=== PATIENT | female | born 1945 | race Caucasian/White ===

== ENCOUNTER → 2020-06-21 | Day surgery (SDC) | payer MEDICARE, BC ==
[2020-06-16 14:34] LABS: BASOPHILS # (AUTO) 0.1 (0.0-0.1); BASOPHILS % 1.3 % (0.0-1.0); EOSINOPHILS # (AUTO) 0.9 (0.0-0.4); EOSINOPHILS % 9.2 % (0.0-6.0); HEMATOCRIT 33.9 % (34.2-44.1); HEMOGLOBIN 10.8 g/dL (12.0-16.0); LYMPHOCYTES # (AUTO) 2.4 (1.0-3.2); LYMPHOCYTES % 25.6 % (18.0-39.1); MEAN CORPUSCULAR HEMOGLOBIN 31.4 pg (28-32); MEAN CORPUSCULAR HGB CONC 31.9 g/dL (31-35); MEAN CORPUSCULAR VOLUME 98.5 fL (81-99); MONOCYTES # (AUTO) 0.6 (0.2-0.8); NEUTROPHILS # (AUTO) 5.4 (2.1-6.9); NEUTROPHILS % 57.6 % (38.7-80.0); PLATELET COUNT 253 x10e3/uL (140-360); RED BLOOD COUNT 3.44 x10e6/uL (3.6-5.1); RED CELL DISTRIBUTION WIDTH 14.1 % (11.7-14.4)
--- NOTE | 2020-06-16 15:19 | Diagnostic Imaging Report ---
EXAMINATION: PA and lateral views of the chest. COMPARISON: None CLINICAL HISTORY: Preoperative examination for orthopedic procedure DISCUSSION: The lungs are well inflated. No focal airspace consolidation, pleural effusion, or pneumothorax. Tortuous thoracic aorta with otherwise normal cardiomediastinal contour. No acute osseous abnormalities. Probable posttraumatic deformities of several right-sided ribs. IMPRESSION: No acute cardiopulmonary abnormalities. Signed by: Dr. Lazaro Zapata M.D. on 06/16/2020 3:15 PM
[~2020-06-21] MED LIST: ASPIRIN81 MG PO; BENICAR20 MG PO; BUPIVACAINE HCL 0.5% INJ 30 ML VIAL INJ ONE; CEFAZOLIN SOD 1 GM/NS 50ML 100 ML IV ONE; CLARITIN-D 241 EACH PO; DEXAMETHASONE SOD PHOS INJ 4 MG/ML VIAL ONE; IBUPROFEN200 MG PO; KETOROLAC TROMETHAMINE 30 MG/ML VIAL ONE; LEVOTHYROXINE100 MC1 PO; LIDOCAINE HCL 2% JELLY 5 ML TUBE ONE; LIDOCAINE HCL 2% LOCAL INJ 5 ML SDV VIAL INJ ONE; LIPITOR10 MG PO; ONDANSETRON HCL INJ 2MG/ML 2ML 2 MG/ML VIAL ONE; OXYBUTYNIN CHLOR5 M1 PO; PROPOFOL IV EMULSION 10 MG/ML 20 ML VIAL ONE; SEVOFLURANE INHAL SOLN 250 ML PEN BTL ONE
[2020-06-21 10:00] VITALS: BP 122/73
--- NOTE | 2020-06-27 19:37 | Operative Report ---
DATE OF PROCEDURE: 06/21/2020 SURGEON: Rory Lara MD PREOPERATIVE DIAGNOSIS: Right carpal tunnel syndrome. POSTOPERATIVE DIAGNOSIS: Right carpal tunnel syndrome. OPERATIONS/PROCEDURES PERFORMED: Right carpal tunnel release, ANESTHESIA: General endotracheal intubation anesthesia. IV FLUIDS: With the anesthesia record. BLOOD LOSS: Minimal. BRIEF DESCRIPTION OF THE PATIENT'S OPERATIVE PROCEDURE: Ms. Turner was taken to the operating room and placed in supine position on the operating table. Following induction of general anesthesia as well as endotracheal intubation, the patient's right upper extremity was examined under anesthesia. She was found to have no gross abnormalities to the wrist or hand. The patient's upper extremity was prepped and draped in standard surgical fashion. The case was begun by creating incision along the thenar palmar crease. This incision was carried through skin only. Blunt dissection was used to deepen the incision to the level of transverse carpal ligament. Hemostat was placed beneath the transverse carpal ligament. The transverse carpal ligament was then divided in line with the skin incision. The floor of the carpal canal was evaluated and found to have no gross abnormalities. The tourniquet was deflated and hemostasis was obtained. The wound was then closed in a single layered fashion. Sterile dressings were applied. The patient was then awakened and taken to the postanesthesia care unit in stable condition. MD LEÓN Humphrey/MODL /[id number]
== END | disposition home or self-care (01) ==
LOC: OR 05:29
PROVIDERS: ATTEND Specialist
DX: G56.01 Carpal tunnel syndrome, right upper limb (principal); E78.00 Pure hypercholesterolemia, unspecified; E03.9 Hypothyroidism, unspecified; I10 Essential (primary) hypertension; Z01.810 Encounter for preprocedural cardiovascular examination; Z01.812 Encounter for preprocedural laboratory examination; Z01.818 Encounter for other preprocedural examination; Z11.59 Encounter for screening for other viral diseases; Z79.82 Long term (current) use of aspirin
CPT/HCPCS: 36415; 64721; 71046; 85025; 93005; J0690; J1100; J1885; J2001 ×2; J2405; J2704; U0002

== ENCOUNTER 2022-03-27 15:48 | Emergency (ER) | payer MEDICARE, BC ==
[~2022-03-27] VITALS: Ht 157.5 cm; Wt 90.7 kg
[~2022-03-27 15:48] MED LIST changes: -BUPIVACAINE HCL 0.5% INJ 30 ML VIAL INJ ONE; -CEFAZOLIN SOD 1 GM/NS 50ML 100 ML IV ONE; -DEXAMETHASONE SOD PHOS INJ 4 MG/ML VIAL ONE; -KETOROLAC TROMETHAMINE 30 MG/ML VIAL ONE; -LIDOCAINE HCL 2% JELLY 5 ML TUBE ONE; -LIDOCAINE HCL 2% LOCAL INJ 5 ML SDV VIAL INJ ONE; -ONDANSETRON HCL INJ 2MG/ML 2ML 2 MG/ML VIAL ONE; -PROPOFOL IV EMULSION 10 MG/ML 20 ML VIAL ONE; -SEVOFLURANE INHAL SOLN 250 ML PEN BTL ONE
[2022-03-27] MEDS ORDERED: FUROSEMIDE INJ 10 MG/ML 2 ML VIAL IV ONE (16:15)
[2022-03-27 16:23] LABS: BASOPHILS # (AUTO) 0.1 (0.0-0.1); BASOPHILS % 0.7 % (0.0-1.0); EOSINOPHILS # (AUTO) 0.7 (0.0-0.4); EOSINOPHILS % 8.2 % (0.0-6.0); HEMATOCRIT 29.3 % (34.2-44.1); HEMOGLOBIN 9.5 g/dL (12.0-16.0); LYMPHOCYTES # (AUTO) 1.5 (1.0-3.2); LYMPHOCYTES % 17.8 % (18.0-39.1); MEAN CORPUSCULAR HEMOGLOBIN 35.1 pg (28-32); MEAN CORPUSCULAR HGB CONC 32.4 g/dL (31-35); MEAN CORPUSCULAR VOLUME 108.1 fL (81-99); MONOCYTES # (AUTO) 0.6 (0.2-0.8); NEUTROPHILS # (AUTO) 5.6 (2.1-6.9); NEUTROPHILS % 65.8 % (38.7-80.0); PLATELET COUNT 242 x10e3/uL (140-360); RED BLOOD COUNT 2.71 x10e6/uL (3.6-5.1); RED CELL DISTRIBUTION WIDTH 14.5 % (11.7-14.4)
[2022-03-27 16:43] LABS: ALBUMIN 3.7 g/dL (3.5-5.0); ALBUMIN/GLOBULIN RATIO 0.8 (0.8-2.0); CALCIUM 9.1 mg/dL (8.4-10.2); CREATININE, SERUM 1.33 mg/dL (0.57-1.11)
[2022-03-27] MEDS ORDERED: METHYLPREDNISOLONE SOD SUCC 125 MG/2ML VIAL IV SCH (17:00)
[2022-03-27] MEDS ORDERED: PREDNISONE50 MG PO (18:05)
[2022-03-27] MEDS ORDERED: DOXYCYCLINE HY100 MG PO (18:05)
[2022-03-27] MEDS ORDERED: PROAIR HFA INH8.5 GM PO (18:05)
[2022-03-27] MEDS ORDERED: HYDROCHLOROTHIA25 MG PO (18:07)
[2022-03-27 18:19] VITALS: BP 131/78
[2022-03-27] MEDS ORDERED: ALBUTEROL/IPRATROPIUM 3 ML NEB NEB SCH (19:00)
== END 2022-03-27 18:21 | disposition home or self-care (01) ==
LOC: ER 17:42
DX: J18.9 Pneumonia, unspecified organism (principal); J45.909 Unspecified asthma, uncomplicated; R60.9 Edema, unspecified; I10 Essential (primary) hypertension; Z20.822 Contact with and (suspected) exposure to COVID-19
CPT/HCPCS: 36415; 71045; 80053; 83880; 84484; 85025; 93005; 94640; 94799; 99284; J1940; J2930; U0002

== ENCOUNTER 2022-05-15 16:19 | Inpatient (IN) | payer MEDICARE, BC ==
[~2022-05-15] VITALS: Ht 157.5 cm; Wt 98.9 kg
[~2022-05-15 16:19] MED LIST changes: +DOXYCYCLINE HY100 MG PO; +HYDROCHLOROTHIA25 MG PO; +PREDNISONE50 MG PO; +PROAIR HFA INH8.5 GM PO
[2022-05-15] MEDS ORDERED: KETOROLAC TROMETHAMINE 30 MG/ML VIAL IV STA (17:08)
[2022-05-15] MEDS ORDERED: ONDANSETRON HCL INJ 2MG/ML 2ML 2 MG/ML VIAL IV STA (17:08)
[2022-05-15 17:12] LABS: BASOPHILS % 0.2 % (0.0-1.0); EOSINOPHILS # (AUTO) 0.1 (0.0-0.4); EOSINOPHILS % 1.2 % (0.0-6.0); HEMATOCRIT 27.1 % (34.2-44.1); HEMOGLOBIN 8.7 g/dL (12.0-16.0); LYMPHOCYTES # (AUTO) 1.2 (1.0-3.2); MEAN CORPUSCULAR HEMOGLOBIN 36.3 pg (28-32); MEAN CORPUSCULAR HGB CONC 32.1 g/dL (31-35); MEAN CORPUSCULAR VOLUME 112.9 fL (81-99); MONOCYTES # (AUTO) 0.9 (0.2-0.8); MONOCYTES % 7.6 % (4.4-11.3); NEUTROPHILS # (AUTO) 9.6 (2.1-6.9); NEUTROPHILS % 80.7 % (38.7-80.0); PLATELET COUNT 237 x10e3/uL (140-360); RED CELL DISTRIBUTION WIDTH 15.5 % (11.7-14.4)
[2022-05-15 17:14] LABS: CLARITY,URINE CLOUDY (CLEAR); COLOR,URINE YELLOW (YELLOW); LEUKOCYTE ESTERASE ,URINE 1+ (NEGATIVE); NITRITE,URINE NEGATIVE (NEGATIVE); PROTEIN,URINE DIPSTICK NEGATIVE (NEGATIVE)
[2022-05-15 17:15] LABS: KETONES,URINE NEGATIVE (NEGATIVE); URINE UROBILINOGEN 0.2 mg/dL (0.2 - 1)
[2022-05-15] MEDS ORDERED: DICYCLOMINE HCL 20 MG/2 ML VIAL IM ONE (17:15)
[2022-05-15 17:23] LABS: ALBUMIN 3.4 g/dL (3.5-5.0); ALBUMIN/GLOBULIN RATIO 0.8 (0.8-2.0); ANION GAP 16.6 mmol/L (8-16); CALCIUM 8.8 mg/dL (8.4-10.2); CREATININE, SERUM 1.07 mg/dL (0.57-1.11); POTASSIUM 4.6 mmol/L (3.5-5.1)
[2022-05-15 17:32] LABS: WBC,URINE (MAN) >50 /HPF (0-5)
[2022-05-15 17:33] LABS: BACTERIA,URINE MANY /HPF; EPITHELIAL CELLS,URINE MODERATE /LPF; MUCUS,URINE MODERATE (RARE); TRANSITIONAL EPI CELLS,URINE MODERATE
[2022-05-15 17:34] LABS: OTHER CRYSTALS,URINE PRESENT
[2022-05-15 17:57] LABS: CREATINE KINASE MB 1.1 ng/mL (0-5.0)
[2022-05-15] MEDS ORDERED: ONDANSETRON HCL INJ 2MG/ML 2ML 2 MG/ML VIAL IV PRN (18:30)
[2022-05-15] MEDS ORDERED: Morphine 4mg INJECTION 4 MG/ML INJ IV PRN (18:30)
[2022-05-15 20:24] VITALS: BP 132/75
[2022-05-15 21:00] VITALS: BP 132/75
[2022-05-15] MEDS: SODIUM CHLORIDE 0.9% 1000ML 1,000 ML IV SCH (21:11)
[2022-05-16] VITALS (7 sets, daily range): BP systolic 95–130; BP diastolic 43–70
[2022-05-16] MEDS ORDERED: CETIRIZINE HCL10 MG PO (01:09)
[2022-05-16] MEDS ORDERED: VITAMIN A10000 UNIT PO (01:09)
[2022-05-16] MEDS ORDERED: TRELEGY ELLIPT1 EACH (01:09)
[2022-05-16] MEDS ORDERED: DIPHENHYDRAMINE25 MG PO (01:09)
[2022-05-16] MEDS ORDERED: MONTELUKAST SOD10 MG PO (01:09)
[2022-05-16] MEDS ORDERED: B12 ACTIVE1000 MCG PO (01:11)
[2022-05-16] MEDS ORDERED: BIOTENE473 ML PO (01:12)
[2022-05-16] MEDS ORDERED: VIT C-ROSE HIP500 MG PO (01:14)
[2022-05-16] MEDS ORDERED: FOLIC ACID0.4 MG PO (01:15)
[2022-05-16] MEDS ORDERED: KETOROLAC TROMETHAMINE 30 MG/ML VIAL IV PRN (03:45)
[2022-05-16] MEDS ORDERED: LORAZEPAM INJ 2 MG/ML VIAL IV ONE (04:00)
[2022-05-16] MEDS ORDERED: DIPHENHYDRAMINE HCL INJ 50 MG/ML VIAL IV ONE (04:30)
[2022-05-16 05:33] LABS: BASOPHILS # (AUTO) 0.1 (0.0-0.1); BASOPHILS % 0.3 % (0.0-1.0); EOSINOPHILS # (AUTO) 0.1 (0.0-0.4); EOSINOPHILS % 0.5 % (0.0-6.0); HEMATOCRIT 26.2 % (34.2-44.1); HEMOGLOBIN 8.4 g/dL (12.0-16.0); LYMPHOCYTES # (AUTO) 0.2 (1.0-3.2); LYMPHOCYTES % 1.4 % (18.0-39.1); MEAN CORPUSCULAR HEMOGLOBIN 36.2 pg (28-32); MEAN CORPUSCULAR HGB CONC 32.1 g/dL (31-35); MEAN CORPUSCULAR VOLUME 112.9 fL (81-99); MONOCYTES # (AUTO) 0.1 (0.2-0.8); MONOCYTES % 0.6 % (4.4-11.3); NEUTROPHILS # (AUTO) 16.4 (2.1-6.9); NEUTROPHILS % 96.4 % (38.7-80.0); PLATELET COUNT 201 x10e3/uL (140-360); RED BLOOD COUNT 2.32 x10e6/uL (3.6-5.1); RED CELL DISTRIBUTION WIDTH 16.1 % (11.7-14.4)
[2022-05-16 07:05] LABS: ALBUMIN 3.2 g/dL (3.5-5.0); ALBUMIN/GLOBULIN RATIO 0.8 (0.8-2.0); ANION GAP 17.1 mmol/L (8-16); CALCIUM 8.6 mg/dL (8.4-10.2); CREATININE, SERUM 1.84 mg/dL (0.57-1.11); POTASSIUM 5.1 mmol/L (3.5-5.1)
[2022-05-16] MEDS: LEVOTHYROXINE SODIUM 75 MCG TAB PO SCH (07:30)
[2022-05-16] MEDS: SODIUM CHLORIDE 0.9% 1000ML 1,000 ML IV SCH ×2 (07:35→12:25)
[2022-05-16] MEDS: MONTELUKAST SODIUM 10 MG TAB PO SCH (07:35)
[2022-05-16 08:33] LABS: BAND NEUTROPHILS % (MANUAL) 3 %; LYMPHOCYTES % (MANUAL) 2 % (19-48); MONOCYTES % (MANUAL) 1 % (3.4-9.0); NEUTROPHILS % (MANUAL) 94 % (40-74); PLATELET ESTIMATE ADEQUATE; PLATELET MORPHOLOGY COMMENT NORMAL; RBC MORPHOLOGY COMMENT NORMAL
[2022-05-16 08:34] LABS: POLYCHROMASIA FEW
[2022-05-16 09:41] LABS: % IRON SATURATION 9 % (15-50); IRON 25 ug/dL (50-170); TOTAL IRON BINDING CAPACITY 276 ug/dL (261-478); TRANSFERRIN 197 mg/dL (180-382)
[2022-05-16] MEDS: BUDESONIDE/FORMOTEROL 160/4.5MCG INHALER INH SCH ×2 (10:00→19:00)
[2022-05-16] MEDS: ALBUTEROL/IPRATROPIUM 3 ML NEB NEB SCH ×2 (13:10→18:47)
[2022-05-16] MEDS: ATORVASTATIN 10 MG TAB PO SCH (20:24)
[2022-05-17] VITALS (8 sets, daily range): BP systolic 115–148; BP diastolic 49–69
[2022-05-17] MEDS: ALBUTEROL/IPRATROPIUM 3 ML NEB NEB SCH ×4 (00:35→19:50)
[2022-05-17] MEDS: SODIUM CHLORIDE 0.9% 1000ML 1,000 ML IV SCH ×4 (02:30→21:17)
[2022-05-17 04:41] LABS: BASOPHILS % 0.1 % (0.0-1.0); EOSINOPHILS # (AUTO) 0.1 (0.0-0.4); EOSINOPHILS % 0.3 % (0.0-6.0); LYMPHOCYTES # (AUTO) 1.2 (1.0-3.2); LYMPHOCYTES % 6.3 % (18.0-39.1); MEAN CORPUSCULAR HEMOGLOBIN 35.9 pg (28-32); MEAN CORPUSCULAR HGB CONC 30.8 g/dL (31-35); MEAN CORPUSCULAR VOLUME 116.4 fL (81-99); MONOCYTES # (AUTO) 1.1 (0.2-0.8); MONOCYTES % 5.8 % (4.4-11.3); NEUTROPHILS # (AUTO) 16.4 (2.1-6.9); PLATELET COUNT 164 x10e3/uL (140-360); RED BLOOD COUNT 1.95 x10e6/uL (3.6-5.1); RED CELL DISTRIBUTION WIDTH 15.9 % (11.7-14.4)
[2022-05-17 04:42] LABS: HEMATOCRIT 22.7 % (34.2-44.1)
[2022-05-17 05:16] LABS: ALBUMIN 2.8 g/dL (3.5-5.0); ALBUMIN/GLOBULIN RATIO 0.8 (0.8-2.0); ANION GAP 14.5 mmol/L (8-16); CALCIUM 7.9 mg/dL (8.4-10.2); CREATININE, SERUM 1.56 mg/dL (0.57-1.11); MAGNESIUM 2.3 MG/DL (1.3-2.1); POTASSIUM 4.5 mmol/L (3.5-5.1)
[2022-05-17] MEDS: BUDESONIDE/FORMOTEROL 160/4.5MCG INHALER INH SCH ×2 (07:00→19:00)
[2022-05-17] MEDS: LEVOTHYROXINE SODIUM 75 MCG TAB PO SCH (07:30)
[2022-05-17] MEDS: MONTELUKAST SODIUM 10 MG TAB PO SCH (09:00)
[2022-05-17] MEDS ORDERED: IOPAMIDOL 610MG/1ML 300 MG/ML VIAL IV ONE (11:55)
[2022-05-17] MEDS ORDERED: B&O 60MG R/S 60 MG SUPP PR ONE (11:56)
[2022-05-17] MEDS ORDERED: SEVOFLURANE INHAL SOLN 250 ML PEN BTL ONE (12:18)
[2022-05-17] MEDS ORDERED: DEXAMETHASONE SOD PHOS INJ 4 MG/ML SDV ONE (12:18)
[2022-05-17] MEDS ORDERED: LIDOCAINE HCL 2% LOCAL INJ 5 ML SDV VIAL INJ ONE (12:18)
[2022-05-17] MEDS ORDERED: ONDANSETRON HCL INJ 2MG/ML 2ML 2 MG/ML VIAL ONE (12:18)
[2022-05-17] MEDS ORDERED: PROPOFOL IV EMULSION 10 MG/ML 20 ML VIAL ONE (12:18)
[2022-05-17] MEDS ORDERED: POVIDONE IODINE 0.05% 0.05 % ML PO ONE (12:18)
[2022-05-17] MEDS ORDERED: EPHEDRINE SULFATE INJ 50 MG/ML VIAL ONE (12:18)
[2022-05-17] MEDS ORDERED: PHENAZOPYRIDINE HCL 100 MG TAB PO PRN (12:30)
[2022-05-17] MEDS ORDERED: B&O 60MG R/S 60 MG SUPP PR PRN (12:30)
[2022-05-17] MEDS ORDERED: FENTANYL CITRATE/PF 100MCG/2 ML INJ ONE (13:07)
[2022-05-17] MEDS ORDERED: MIDAZOLAM HCL 2 MG/2 ML VIAL ONE (13:07)
[2022-05-17 16:39] LABS: BASOPHILS % 0.2 % (0.0-1.0); HEMATOCRIT 23.6 % (34.2-44.1); HEMOGLOBIN 7.2 g/dL (12.0-16.0); LYMPHOCYTES # (AUTO) 0.5 (1.0-3.2); LYMPHOCYTES % 2.8 % (18.0-39.1); MEAN CORPUSCULAR HEMOGLOBIN 36.2 pg (28-32); MEAN CORPUSCULAR HGB CONC 30.5 g/dL (31-35); MEAN CORPUSCULAR VOLUME 118.6 fL (81-99); MONOCYTES # (AUTO) 0.2 (0.2-0.8); MONOCYTES % 1.3 % (4.4-11.3); NEUTROPHILS # (AUTO) 17.2 (2.1-6.9); PLATELET COUNT 157 x10e3/uL (140-360); RED BLOOD COUNT 1.99 x10e6/uL (3.6-5.1)
[2022-05-17] MEDS: IRON SUCROSE 100 MG in SODIUM CHLORIDE 0.9% 100 ML IV SCH (17:05)
[2022-05-17 17:18] LABS: FERRITIN 466.34 ng/mL (4.63-204.00)
[2022-05-17] MEDS: ATORVASTATIN 10 MG TAB PO SCH (21:14)
[2022-05-18] VITALS (7 sets, daily range): BP systolic 105–143; BP diastolic 56–68
[2022-05-18] MEDS: ALBUTEROL/IPRATROPIUM 3 ML NEB NEB SCH ×4 (02:05→19:00)
[2022-05-18 05:03] LABS: HEMATOCRIT 22.7 % (34.2-44.1); LYMPHOCYTES # (AUTO) 0.8 (1.0-3.2); LYMPHOCYTES % 5.2 % (18.0-39.1); MEAN CORPUSCULAR HEMOGLOBIN 36.3 pg (28-32); MEAN CORPUSCULAR HGB CONC 30.8 g/dL (31-35); MEAN CORPUSCULAR VOLUME 117.6 fL (81-99); MONOCYTES # (AUTO) 0.6 (0.2-0.8); NEUTROPHILS # (AUTO) 13.3 (2.1-6.9); NEUTROPHILS % 90.2 % (38.7-80.0); PLATELET COUNT 157 x10e3/uL (140-360); RED BLOOD COUNT 1.93 x10e6/uL (3.6-5.1); RED CELL DISTRIBUTION WIDTH 15.9 % (11.7-14.4)
[2022-05-18 05:23] LABS: ANION GAP 15.8 mmol/L (8-16); CALCIUM 7.7 mg/dL (8.4-10.2); CREATININE, SERUM 0.91 mg/dL (0.57-1.11); POTASSIUM 4.8 mmol/L (3.5-5.1)
[2022-05-18] MEDS: SODIUM CHLORIDE 0.9% 1000ML 1,000 ML IV SCH ×2 (06:30→09:51)
[2022-05-18] MEDS: BUDESONIDE/FORMOTEROL 160/4.5MCG INHALER INH SCH ×2 (07:00→19:00)
[2022-05-18] MEDS: LEVOTHYROXINE SODIUM 75 MCG TAB PO SCH (08:11)
[2022-05-18] MEDS: IRON SUCROSE 100 MG in SODIUM CHLORIDE 0.9% 100 ML IV SCH (08:30)
[2022-05-18] MEDS: MONTELUKAST SODIUM 10 MG TAB PO SCH (09:50)
[2022-05-18] MEDS: SOLIFENACIN SUCCINATE 5 MG TAB PO SCH (09:50)
[2022-05-18] MEDS: ATORVASTATIN 10 MG TAB PO SCH (21:42)
[2022-05-19] VITALS (7 sets, daily range): BP systolic 108–152; BP diastolic 60–74
[2022-05-19] MEDS: ALBUTEROL/IPRATROPIUM 3 ML NEB NEB SCH ×4 (07:17→19:10)
[2022-05-19] MEDS: BUDESONIDE/FORMOTEROL 160/4.5MCG INHALER INH SCH ×2 (07:17→19:10)
[2022-05-19 07:28] LABS: BASOPHILS % 0.2 % (0.0-1.0); EOSINOPHILS # (AUTO) 0.1 (0.0-0.4); EOSINOPHILS % 0.5 % (0.0-6.0); LYMPHOCYTES # (AUTO) 1.3 (1.0-3.2); LYMPHOCYTES % 12.1 % (18.0-39.1); MEAN CORPUSCULAR HEMOGLOBIN 35.9 pg (28-32); MEAN CORPUSCULAR HGB CONC 31.6 g/dL (31-35); MEAN CORPUSCULAR VOLUME 113.6 fL (81-99); MONOCYTES # (AUTO) 0.6 (0.2-0.8); MONOCYTES % 5.3 % (4.4-11.3); NEUTROPHILS # (AUTO) 8.9 (2.1-6.9); NEUTROPHILS % 81.4 % (38.7-80.0); PLATELET COUNT 151 x10e3/uL (140-360); RED BLOOD COUNT 1.84 x10e6/uL (3.6-5.1); RED CELL DISTRIBUTION WIDTH 15.9 % (11.7-14.4)
[2022-05-19 07:41] LABS: HEMATOCRIT 20.9 % (34.2-44.1)
[2022-05-19 07:42] LABS: HEMOGLOBIN 6.6 g/dL (12.0-16.0)
[2022-05-19 07:50] LABS: ALBUMIN 2.8 g/dL (3.5-5.0); ALBUMIN/GLOBULIN RATIO 0.8 (0.8-2.0); ANION GAP 13.3 mmol/L (8-16); CALCIUM 8.2 mg/dL (8.4-10.2); CREATININE, SERUM 0.87 mg/dL (0.57-1.11); MAGNESIUM 2.1 MG/DL (1.3-2.1); POTASSIUM 4.3 mmol/L (3.5-5.1)
[2022-05-19] MEDS: LEVOTHYROXINE SODIUM 75 MCG TAB PO SCH (08:00)
[2022-05-19] MEDS ORDERED: SODIUM CHLORIDE 0.9% 250ML 250 ML IV ONE (08:15)
[2022-05-19] MEDS ORDERED: FUROSEMIDE INJ 10 MG/ML 2 ML VIAL IV ONE (08:15)
[2022-05-19] MEDS: IRON SUCROSE 100 MG in SODIUM CHLORIDE 0.9% 100 ML IV SCH (08:31)
[2022-05-19] MEDS: MONTELUKAST SODIUM 10 MG TAB PO SCH (09:00)
[2022-05-19] MEDS: SOLIFENACIN SUCCINATE 5 MG TAB PO SCH (09:00)
[2022-05-19] MEDS: ATORVASTATIN 10 MG TAB PO SCH (21:43)
[2022-05-19] MEDS ORDERED: ZOLPIDEM TARTRATE 5 MG TAB PO PRN (22:15)
[2022-05-20] VITALS (9 sets, daily range): BP systolic 113–165; BP diastolic 59–79
[2022-05-20] MEDS: TRAMADOL HCL 50 MG TAB PO PRN ×2 (00:31→23:44)
[2022-05-20] MEDS: ALBUTEROL/IPRATROPIUM 3 ML NEB NEB SCH ×4 (00:50→19:14)
[2022-05-20 05:41] LABS: BASOPHILS % 0.3 % (0.0-1.0); EOSINOPHILS # (AUTO) 0.1 (0.0-0.4); EOSINOPHILS % 0.8 % (0.0-6.0); LYMPHOCYTES # (AUTO) 1.5 (1.0-3.2); LYMPHOCYTES % 20.5 % (18.0-39.1); MEAN CORPUSCULAR HEMOGLOBIN 36.1 pg (28-32); MEAN CORPUSCULAR HGB CONC 31.7 g/dL (31-35); MEAN CORPUSCULAR VOLUME 113.9 fL (81-99); MONOCYTES # (AUTO) 0.5 (0.2-0.8); MONOCYTES % 6.9 % (4.4-11.3); NEUTROPHILS % 70.9 % (38.7-80.0); PLATELET COUNT 148 x10e3/uL (140-360); RED CELL DISTRIBUTION WIDTH 15.2 % (11.7-14.4)
[2022-05-20 05:49] LABS: HEMATOCRIT 20.5 % (34.2-44.1); HEMOGLOBIN 6.5 g/dL (12.0-16.0)
[2022-05-20 06:22] LABS: ALBUMIN 2.8 g/dL (3.5-5.0); ALBUMIN/GLOBULIN RATIO 0.8 (0.8-2.0); ANION GAP 11.1 mmol/L (8-16); CALCIUM 8.5 mg/dL (8.4-10.2); CREATININE, SERUM 0.8 mg/dL (0.57-1.11); POTASSIUM 4.1 mmol/L (3.5-5.1)
[2022-05-20] MEDS ORDERED: PREDNISONE 20 MG TAB PO SCH (09:00)
[2022-05-20] MEDS: BUDESONIDE/FORMOTEROL 160/4.5MCG INHALER INH SCH ×2 (09:45→19:14)
[2022-05-20] MEDS: LEVOTHYROXINE SODIUM 75 MCG TAB PO SCH (10:10)
[2022-05-20] MEDS: MONTELUKAST SODIUM 10 MG TAB PO SCH (10:10)
[2022-05-20] MEDS: SOLIFENACIN SUCCINATE 5 MG TAB PO SCH (10:11)
[2022-05-20] MEDS ORDERED: ONDANSETRON HCL 4 MG ORAL DISINTEGRATING TAB PO PRN (13:00)
[2022-05-20] MEDS ORDERED: IOPAMIDOL 300MG/ML 100 ML INFUS..BTL IV ONE (17:31)
[2022-05-20] MEDS ORDERED: FUROSEMIDE INJ 10 MG/ML 2 ML VIAL IV PRN (18:45)
[2022-05-20] MEDS ORDERED: SODIUM CHLORIDE 0.9% 250ML 250 ML IV ONE (19:30)
[2022-05-20] MEDS: LORATADINE 10 MG TAB PO PRN (20:28)
[2022-05-20] MEDS: ATORVASTATIN 10 MG TAB PO SCH (20:28)
[2022-05-21] VITALS (8 sets, daily range): BP systolic 117–132; BP diastolic 56–69
[2022-05-21] MEDS: ALBUTEROL/IPRATROPIUM 3 ML NEB NEB SCH ×4 (00:30→19:00)
[2022-05-21] MEDS ORDERED: SODIUM CHLORIDE 0.9% 1000ML 1,000 ML ONE (01:28)
[2022-05-21] MEDS: BUDESONIDE/FORMOTEROL 160/4.5MCG INHALER INH SCH ×2 (07:00→19:00)
[2022-05-21] MEDS ORDERED: FUROSEMIDE INJ 10 MG/ML 2 ML VIAL IV PRN (09:00)
[2022-05-21] MEDS: LORATADINE 10 MG TAB PO PRN (09:39)
[2022-05-21] MEDS: SOLIFENACIN SUCCINATE 5 MG TAB PO SCH (09:39)
[2022-05-21] MEDS: LEVOTHYROXINE SODIUM 75 MCG TAB PO SCH (09:39)
[2022-05-21] MEDS: MONTELUKAST SODIUM 10 MG TAB PO SCH (09:39)
[2022-05-21 10:43] LABS: BASOPHILS % 0.1 % (0.0-1.0); EOSINOPHILS % 0.2 % (0.0-6.0); HEMATOCRIT 26.8 % (34.2-44.1); HEMOGLOBIN 8.7 g/dL (12.0-16.0); LYMPHOCYTES # (AUTO) 1.4 (1.0-3.2); LYMPHOCYTES % 11.7 % (18.0-39.1); MEAN CORPUSCULAR HEMOGLOBIN 35.4 pg (28-32); MEAN CORPUSCULAR HGB CONC 32.5 g/dL (31-35); MEAN CORPUSCULAR VOLUME 108.9 fL (81-99); MONOCYTES # (AUTO) 0.5 (0.2-0.8); MONOCYTES % 3.8 % (4.4-11.3); NEUTROPHILS # (AUTO) 10.3 (2.1-6.9); NEUTROPHILS % 83.8 % (38.7-80.0); PLATELET COUNT 174 x10e3/uL (140-360); RED BLOOD COUNT 2.46 x10e6/uL (3.6-5.1); RED CELL DISTRIBUTION WIDTH 19.6 % (11.7-14.4)
[2022-05-21 11:11] LABS: ANION GAP 14.8 mmol/L (8-16); CALCIUM 8.8 mg/dL (8.4-10.2); CREATININE, SERUM 0.86 mg/dL (0.57-1.11); POTASSIUM 3.8 mmol/L (3.5-5.1)
[2022-05-21 12:29] LABS: BAND NEUTROPHILS % (MANUAL) 1 %; LYMPHOCYTES % (MANUAL) 18 % (19-48); MONOCYTES % (MANUAL) 5 % (3.4-9.0); NEUTROPHILS % (MANUAL) 76 % (40-74)
[2022-05-21 12:31] LABS: ANISOCYTOSIS SLIGHT; POLYCHROMASIA FEW
[2022-05-21 12:32] LABS: PLATELET ESTIMATE ADEQUATE; PLATELET MORPHOLOGY COMMENT NORMAL
[2022-05-21] MEDS: ATORVASTATIN 10 MG TAB PO SCH (20:14)
[2022-05-22] VITALS (7 sets, daily range): BP systolic 112–136; BP diastolic 65–80
[2022-05-22] MEDS: ALBUTEROL/IPRATROPIUM 3 ML NEB NEB SCH ×4 (01:30→20:35)
[2022-05-22] MEDS: BUDESONIDE/FORMOTEROL 160/4.5MCG INHALER INH SCH ×2 (06:28→20:35)
[2022-05-22] MEDS: SOLIFENACIN SUCCINATE 5 MG TAB PO SCH (08:32)
[2022-05-22] MEDS: MONTELUKAST SODIUM 10 MG TAB PO SCH (08:32)
[2022-05-22] MEDS: LEVOTHYROXINE SODIUM 75 MCG TAB PO SCH (08:32)
[2022-05-22] MEDS: TRAMADOL HCL 50 MG TAB PO PRN (08:33)
[2022-05-22] MEDS: ATORVASTATIN 10 MG TAB PO SCH (21:12)
[2022-05-23] VITALS (7 sets, daily range): BP systolic 121–147; BP diastolic 58–77
[2022-05-23] MEDS: ALBUTEROL/IPRATROPIUM 3 ML NEB NEB SCH ×3 (01:00→12:33)
[2022-05-23 05:16] LABS: BASOPHILS % 0.2 % (0.0-1.0); EOSINOPHILS # (AUTO) 0.2 (0.0-0.4); HEMATOCRIT 26.8 % (34.2-44.1); HEMOGLOBIN 8.4 g/dL (12.0-16.0); LYMPHOCYTES # (AUTO) 2.1 (1.0-3.2); LYMPHOCYTES % 21.7 % (18.0-39.1); MEAN CORPUSCULAR HEMOGLOBIN 34.4 pg (28-32); MEAN CORPUSCULAR HGB CONC 31.3 g/dL (31-35); MEAN CORPUSCULAR VOLUME 109.8 fL (81-99); MONOCYTES # (AUTO) 0.6 (0.2-0.8); MONOCYTES % 6.1 % (4.4-11.3); NEUTROPHILS # (AUTO) 6.8 (2.1-6.9); NEUTROPHILS % 69.6 % (38.7-80.0); PLATELET COUNT 201 x10e3/uL (140-360); RED BLOOD COUNT 2.44 x10e6/uL (3.6-5.1); RED CELL DISTRIBUTION WIDTH 18.7 % (11.7-14.4)
[2022-05-23 05:41] LABS: ALBUMIN/GLOBULIN RATIO 0.8 (0.8-2.0); ANION GAP 13.9 mmol/L (8-16); CALCIUM 8.5 mg/dL (8.4-10.2); CREATININE, SERUM 0.76 mg/dL (0.57-1.11); POTASSIUM 3.9 mmol/L (3.5-5.1)
[2022-05-23] MEDS: BUDESONIDE/FORMOTEROL 160/4.5MCG INHALER INH SCH (07:30)
[2022-05-23] MEDS: MONTELUKAST SODIUM 10 MG TAB PO SCH (09:03)
[2022-05-23] MEDS: LEVOTHYROXINE SODIUM 75 MCG TAB PO SCH (09:05)
[2022-05-23] MEDS: SOLIFENACIN SUCCINATE 5 MG TAB PO SCH (09:05)
== END 2022-05-23 21:19 | disposition home or self-care (01) | DRG 659 ==
LOC: ER 16:23 → ERHOLD 18:28 → MED/SURG3 19:46
PROVIDERS: ADMIT Internal Medicine; ATTEND Internal Medicine
PROC: 0T768DZ Dilation of Right Ureter with Intraluminal Device, Via Natural or Artificial Opening Endoscopic (ICD-10-PCS; 2022-05-17)
PROC: BT141ZZ Fluoroscopy of Kidneys, Ureters and Bladder using Low Osmolar Contrast (ICD-10-PCS; principal; 2022-05-17 11:53)
PROC: 30233N1 Transfusion of Nonautologous Red Blood Cells into Peripheral Vein, Percutaneous Approach (ICD-10-PCS; 2022-05-21)
DX: N13.6 Pyonephrosis (principal); J96.01 Acute respiratory failure with hypoxia; I10 Essential (primary) hypertension; E78.5 Hyperlipidemia, unspecified; E03.9 Hypothyroidism, unspecified; F41.1 Generalized anxiety disorder; N39.46 Mixed incontinence; N81.4 Uterovaginal prolapse, unspecified; N36.41 Hypermobility of urethra; N95.2 Postmenopausal atrophic vaginitis; J45.909 Unspecified asthma, uncomplicated; N17.9 Acute kidney failure, unspecified; E66.9 Obesity, unspecified; D50.9 Iron deficiency anemia, unspecified; E77.8 Other disorders of glycoprotein metabolism; E88.09 Other disorders of plasma-protein metabolism, not elsewhere classified; E83.51 Hypocalcemia; B96.4 Proteus (mirabilis) (morganii) as the cause of diseases classified elsewhere; Z68.36 Body mass index [BMI] 36.0-36.9, adult; Z20.822 Contact with and (suspected) exposure to COVID-19; D53.9 Nutritional anemia, unspecified
CPT/HCPCS: 36415; 71045; 71260; 74018; 74176; 74420; 76705; 80048; 80053; 81001; 82550; 82553; 82607; 82728; 82747; 83010; 83540; 83615; 83690; 83735; 83880; 83970; 84443; 84466; 84484; 84550; 85025; 85045; 86157; 86200; 86255; 86431; 86738; 86850; 86900; 86920; 86922; 87040; 87086; 87186; 93005; 94640; 94799; 96360; 96361; 99284; C1758; C1769; C2617; J0456; J0500; J0696; J1100; J1200; J1756; J1885; J1940; J2001; J2250; J2270; J2405; J3010; J7030; J7050; J7512; P9016; Q9967

== ENCOUNTER → 2022-06-28 | Day surgery (SDC) | payer MEDICARE, BC ==
[2022-06-26 12:27] LABS: BASOPHILS % 0.5 % (0.0-1.0); EOSINOPHILS # (AUTO) 0.2 (0.0-0.4); EOSINOPHILS % 2.2 % (0.0-6.0); HEMATOCRIT 30.9 % (34.2-44.1); HEMOGLOBIN 9.8 g/dL (12.0-16.0); LYMPHOCYTES # (AUTO) 1.9 (1.0-3.2); LYMPHOCYTES % 23.7 % (18.0-39.1); MEAN CORPUSCULAR HEMOGLOBIN 34.9 pg (28-32); MEAN CORPUSCULAR HGB CONC 31.7 g/dL (31-35); MONOCYTES # (AUTO) 0.9 (0.2-0.8); MONOCYTES % 10.8 % (4.4-11.3); NEUTROPHILS % 62.6 % (38.7-80.0); PLATELET COUNT 230 x10e3/uL (140-360); RED BLOOD COUNT 2.81 x10e6/uL (3.6-5.1); RED CELL DISTRIBUTION WIDTH 15.2 % (11.7-14.4)
[2022-06-26 12:48] LABS: ANION GAP 14.2 mmol/L (8-16); CALCIUM 9.6 mg/dL (8.4-10.2); CREATININE, SERUM 0.95 mg/dL (0.57-1.11); POTASSIUM 4.2 mmol/L (3.5-5.1)
[~2022-06-28] MED LIST changes: +B&O 60MG R/S 60 MG SUPP PR ONE; +B12 ACTIVE1000 MCG PO; +BIOTENE473 ML PO; +CEFTRIAXONE 1 GM VIAL ONE; +CETIRIZINE HCL10 MG PO; +DIPHENHYDRAMINE25 MG PO; +FENTANYL CITRATE/PF 100MCG/2 ML INJ ONE; +FOLIC ACID0.4 MG PO; +GENTAMICIN 80MG/NS 100 ML 200 ML IV ONE; +IOPAMIDOL 300MG/ML 50ML INFUS..BTL IV ONE; +LIDOCAINE HCL 2% LOCAL INJ 5 ML SDV VIAL INJ ONE; +METOCLOPRAMIDE HCL 10 MG/2ML VIAL ONE; +MONTELUKAST SOD10 MG PO; +ONDANSETRON HCL INJ 2MG/ML 2ML 2 MG/ML VIAL ONE; +POVIDONE IODINE 0.05% 0.05 % ML PO ONE; +PROPOFOL IV EMULSION 10 MG/ML 20 ML VIAL ONE; +SEVOFLURANE INHAL SOLN 250 ML PEN BTL ONE; +TRELEGY ELLIPT1 EACH; +VIT C-ROSE HIP500 MG PO; +VITAMIN A10000 UNIT PO
[2022-06-28 14:00] VITALS: BP 107/57
== END | disposition home or self-care (01) ==
LOC: OR 09:51
PROVIDERS: ATTEND Urology
DX: N20.1 Calculus of ureter (principal); Z46.6 Encounter for fitting and adjustment of urinary device; N81.10 Cystocele, unspecified; N81.6 Rectocele; N36.41 Hypermobility of urethra; N95.2 Postmenopausal atrophic vaginitis; N28.89 Other specified disorders of kidney and ureter; N32.89 Other specified disorders of bladder; E03.9 Hypothyroidism, unspecified; J45.909 Unspecified asthma, uncomplicated; I10 Essential (primary) hypertension; E78.5 Hyperlipidemia, unspecified; Z88.6 Allergy status to analgesic agent; Z01.812 Encounter for preprocedural laboratory examination; Z01.818 Encounter for other preprocedural examination; Z79.82 Long term (current) use of aspirin; Z79.899 Other long term (current) drug therapy
CPT/HCPCS: 36415; 52352; 74018; 74420; 80048; 84550; 85025; 88300; C1769; J0696; J1580; J2001; J2405; J2704; J2765; J3010; Q9967

== ENCOUNTER → 2022-12-16 | Day surgery (SDC) | payer BC, MEDICARE ==
[2022-12-12 13:00] LABS: BASOPHILS # (AUTO) 0.1 (0.0-0.1); BASOPHILS % 0.9 % (0.0-1.0); EOSINOPHILS # (AUTO) 0.4 (0.0-0.4); EOSINOPHILS % 4.1 % (0.0-6.0); HEMATOCRIT 29.3 % (34.2-44.1); LYMPHOCYTES # (AUTO) 2.4 (1.0-3.2); LYMPHOCYTES % 26.1 % (18.0-39.1); MEAN CORPUSCULAR HEMOGLOBIN 31.3 pg (28-32); MEAN CORPUSCULAR HGB CONC 30.7 g/dL (31-35); MEAN CORPUSCULAR VOLUME 101.7 fL (81-99); MONOCYTES # (AUTO) 0.7 (0.2-0.8); MONOCYTES % 7.9 % (4.4-11.3); NEUTROPHILS # (AUTO) 5.5 (2.1-6.9); NEUTROPHILS % 60.8 % (38.7-80.0); PLATELET COUNT 232 x10e3/uL (140-360); RED BLOOD COUNT 2.88 x10e6/uL (3.6-5.1); RED CELL DISTRIBUTION WIDTH 15.5 % (11.7-14.4)
[~2022-12-16] MED LIST changes: +ACETYLCYSTEINE 200 MG/ML 4ML VIAL ONE; -B&O 60MG R/S 60 MG SUPP PR ONE; +BENZOCAINE/TETRACAINE/BUTAMBEN AERO SPRAY 56 GM CAN ONE; -CEFTRIAXONE 1 GM VIAL ONE; +DEXAMETHASONE SOD PHOS INJ 4 MG/ML SDV ONE; -FENTANYL CITRATE/PF 100MCG/2 ML INJ ONE; -GENTAMICIN 80MG/NS 100 ML 200 ML IV ONE; +HAIR, SKIN & N1 EACH PO; -IOPAMIDOL 300MG/ML 50ML INFUS..BTL IV ONE; -LIDOCAINE HCL 2% LOCAL INJ 5 ML SDV VIAL INJ ONE; +MIDAZOLAM HCL 2 MG/2 ML VIAL ONE; +OCUVITE LUTEIN1 EACH PO; -SEVOFLURANE INHAL SOLN 250 ML PEN BTL ONE; +SYMBICORT 16010.2 GM INH
[2022-12-16 18:50] VITALS: BP 115/60
== END | disposition home or self-care (01) ==
LOC: OR 01:58
PROVIDERS: ATTEND Internal Medicine Gastroenterology
DX: D64.89 Other specified anemias (principal); D12.8 Benign neoplasm of rectum; K29.50 Unspecified chronic gastritis without bleeding; K25.9 Gastric ulcer, unspecified as acute or chronic, without hemorrhage or perforation; K20.90 Esophagitis, unspecified without bleeding; K64.8 Other hemorrhoids; Z71.3 Dietary counseling and surveillance; G47.30 Sleep apnea, unspecified; I10 Essential (primary) hypertension; J45.909 Unspecified asthma, uncomplicated; E03.9 Hypothyroidism, unspecified; E78.00 Pure hypercholesterolemia, unspecified; Z88.6 Allergy status to analgesic agent; Z01.810 Encounter for preprocedural cardiovascular examination; Z01.812 Encounter for preprocedural laboratory examination; Z79.82 Long term (current) use of aspirin; Z79.899 Other long term (current) drug therapy; Z68.37 Body mass index [BMI] 37.0-37.9, adult; Z87.442 Personal history of urinary calculi
CPT/HCPCS: 36415; 43239; 45385; 85025; 93005; C9113; J1100; J2250; J2405; J2704; J2765; 45378

== ENCOUNTER → 2023-01-07 | Outpatient (CLI) | payer MEDICARE ==
[~2023-01-07] MED LIST changes: -ACETYLCYSTEINE 200 MG/ML 4ML VIAL ONE; -BENZOCAINE/TETRACAINE/BUTAMBEN AERO SPRAY 56 GM CAN ONE; -DEXAMETHASONE SOD PHOS INJ 4 MG/ML SDV ONE; -METOCLOPRAMIDE HCL 10 MG/2ML VIAL ONE; -MIDAZOLAM HCL 2 MG/2 ML VIAL ONE; -ONDANSETRON HCL INJ 2MG/ML 2ML 2 MG/ML VIAL ONE; -POVIDONE IODINE 0.05% 0.05 % ML PO ONE; -PROPOFOL IV EMULSION 10 MG/ML 20 ML VIAL ONE
== END ==
LOC: DX 09:34
PROVIDERS: ATTEND Nurse Practitioner
DX: D64.89 Other specified anemias (principal)
CPT/HCPCS: 74250

== ENCOUNTER 2024-01-21 10:52 | Inpatient (IN) | payer MEDICARE ==
[~2024-01-21] VITALS: Ht 157.5 cm; Wt 78.0 kg
[~2024-01-21 10:52] MED LIST changes: +MULTI-VITAMIN1 EACH PO
[2024-01-21 11:30] LABS: EOSINOPHILS % 4.8 % (0.0-6.0); HEMOGLOBIN 7.1 g/dL (12.0-16.0); LYMPHOCYTES # (AUTO) 0.3 (1.0-3.2); LYMPHOCYTES % 39.3 % (18.0-39.1); MEAN CORPUSCULAR HEMOGLOBIN 32.9 pg (28-32); MEAN CORPUSCULAR HGB CONC 33.8 g/dL (31-35); MEAN CORPUSCULAR VOLUME 97.2 fL (81-99); MONOCYTES # (AUTO) 0.1 (0.2-0.8); MONOCYTES % 10.7 % (4.4-11.3); NEUTROPHILS # (AUTO) 0.3 (2.1-6.9); NEUTROPHILS % 40.4 % (38.7-80.0); RED BLOOD COUNT 2.16 x10e6/uL (3.6-5.1); RED CELL DISTRIBUTION WIDTH 20.1 % (11.7-14.4)
[2024-01-21 11:55] LABS: ALBUMIN 3.2 g/dL (3.5-5.0); ANION GAP 16.8 mmol/L (8-16); CREATININE, SERUM 1.37 mg/dL (0.57-1.11); POTASSIUM 3.8 mmol/L (3.5-5.1); TOTAL PROTEIN 6.5 g/dL (6.5-8.1)
[2024-01-21 12:03] LABS: INR 0.98; PARTIAL THROMBOPLASTIN TIME 27.5 seconds (23.8-35.5); PROTHROMBIN TIME 13.7 seconds (11.9-14.5)
[2024-01-21 12:06] LABS: PLATELET COUNT 34 x10e3/uL (140-360); WHITE BLOOD COUNT 0.84 x10e3/uL (4.8-10.8)
[2024-01-21] MEDS: SODIUM CHLORIDE 0.9% 1000ML 1,000 ML IV ONE (12:30)
[2024-01-21] MEDS ORDERED: ONDANSETRON HCL INJ 2MG/ML 2ML 2 MG/ML VIAL IV PRN (13:00)
[2024-01-21 13:05] LABS: EOSINOPHILS % (MANUAL) 8 % (0-7); LYMPHOCYTES % (MANUAL) 40 % (19-48); MONOCYTES % (MANUAL) 8 % (3.4-9.0); NEUTROPHILS % (MANUAL) 44 % (40-74)
[2024-01-21 13:07] LABS: PLATELET ESTIMATE MARKEDLY DECREASED; PLATELET MORPHOLOGY COMMENT NORMAL; RBC MORPHOLOGY COMMENT NORMAL
[2024-01-21] MEDS: SODIUM CHLORIDE 0.9% 1000ML 1,000 ML IV SCH (16:00)
[2024-01-21 16:19] VITALS: BP 134/54; PULSE 88; RESP 16; TEMP 97.9; O2SAT 98
[2024-01-21 16:31] VITALS: BP 134/54; PULSE 88; RESP 16; TEMP 97.9; O2SAT 98
[2024-01-21 16:45] VITALS: BP 134/54; PULSE 88; RESP 16; TEMP 97.9; O2SAT 98
[2024-01-21] MEDS ORDERED: BREO ELLIPTA 21 EACH INH (17:03)
[2024-01-21] MEDS ORDERED: PANTOPRAZOLE SO40 MG PO (17:03)
[2024-01-21 17:24] LABS: HEMOGLOBIN 5.6 g/dL (12.0-16.0)
[2024-01-21 17:25] LABS: HEMATOCRIT 16.9 % (34.2-44.1)
[2024-01-21 18:24] LABS: % IRON SATURATION 41 % (15-50); IRON 93 ug/dL (50-170); TOTAL IRON BINDING CAPACITY 227 ug/dL (261-478); TRANSFERRIN 162 mg/dL (180-382)
[2024-01-21 19:38] VITALS: BP 98/52; PULSE 83; RESP 18; TEMP 98.7; O2SAT 98
[2024-01-21 21:00] VITALS: BP 98/52; PULSE 83; RESP 18; TEMP 98.7; O2SAT 98
[2024-01-21] MEDS: SODIUM CHLORIDE 0.9% 250ML 250 ML IV ONE ×2 (21:34→21:35)
[2024-01-21] MEDS: ZOLPIDEM TARTRATE 5 MG TAB PO PRN (22:47)
[2024-01-21 23:31] VITALS: BP 120/66; PULSE 93; RESP 18; TEMP 98.7; O2SAT 96
[2024-01-22] VITALS (7 sets, daily range): BP systolic 107–130; BP diastolic 51–61; PULSE 80–99; RESP 17–20; TEMP 97.7–101; O2SAT 94–96
[2024-01-22] MEDS: HYDROCORTISONE ACETATE 25 MG/SUPP.RECT SUPP RC STA (01:13)
[2024-01-22 06:02] LABS: BASOPHILS % 1.2 % (0.0-1.0); EOSINOPHILS % 4.7 % (0.0-6.0); LYMPHOCYTES # (AUTO) 0.4 (1.0-3.2); LYMPHOCYTES % 41.2 % (18.0-39.1); MEAN CORPUSCULAR HEMOGLOBIN 32.3 pg (28-32); MEAN CORPUSCULAR HGB CONC 32.7 g/dL (31-35); MEAN CORPUSCULAR VOLUME 98.8 fL (81-99); MONOCYTES # (AUTO) 0.1 (0.2-0.8); MONOCYTES % 14.1 % (4.4-11.3); NEUTROPHILS # (AUTO) 0.3 (2.1-6.9); NEUTROPHILS % 37.6 % (38.7-80.0); RED BLOOD COUNT 1.67 x10e6/uL (3.6-5.1)
[2024-01-22] MEDS: LEVOTHYROXINE SODIUM 75 MCG TAB PO SCH (06:19)
[2024-01-22 06:26] LABS: PLATELET COUNT 25 x10e3/uL (140-360)
[2024-01-22 06:33] LABS: HEMATOCRIT 16.5 % (34.2-44.1); HEMOGLOBIN 5.4 g/dL (12.0-16.0); WHITE BLOOD COUNT 0.85 x10e3/uL (4.8-10.8)
[2024-01-22 06:44] LABS: ALBUMIN 2.5 g/dL (3.5-5.0); ANION GAP 11.8 mmol/L (8-16); BILIRUBIN,TOTAL 1.4 mg/dL (0.2-1.2); CALCIUM 8.1 mg/dL (8.4-10.2); CREATININE, SERUM 1.07 mg/dL (0.57-1.11); POTASSIUM 3.8 mmol/L (3.5-5.1)
[2024-01-22 07:46] LABS: CLARITY,URINE CLOUDY (CLEAR); COLOR,URINE YELLOW (YELLOW)
[2024-01-22 07:47] LABS: BACTERIA,URINE MANY /HPF; BILIRUBIN,URINE NEGATIVE (NEGATIVE); EPITHELIAL CELLS,URINE FEW /LPF; GLUCOSE, URINE NEGATIVE (NEGATIVE); KETONES,URINE NEGATIVE (NEGATIVE); LEUKOCYTE ESTERASE ,URINE NEGATIVE (NEGATIVE); NITRITE,URINE POSITIVE (NEGATIVE); PH,URINE 5.5 (5 - 7); PROTEIN,URINE DIPSTICK NEGATIVE (NEGATIVE); RBC,URINE 0-5 /HPF (0-5); RENAL EPITHELIAL CELLS,URINE RARE; URINE UROBILINOGEN 0.2 mg/dL (0.2 - 1)
[2024-01-22 09:28] LABS: EOSINOPHILS % (MANUAL) 6 % (0-7); LYMPHOCYTES % (MANUAL) 32 % (19-48); MONOCYTES % (MANUAL) 20 % (3.4-9.0); NEUTROPHILS % (MANUAL) 42 % (40-74)
[2024-01-22 09:29] LABS: PLATELET ESTIMATE MARKEDLY DECREASED; PLATELET MORPHOLOGY COMMENT NORMAL; RBC MORPHOLOGY COMMENT NORMAL
[2024-01-22] MEDS: MONTELUKAST SODIUM 10 MG TAB PO SCH (09:31)
[2024-01-22] MEDS: HYDROCORTISONE ACETATE 25 MG/SUPP.RECT SUPP RC SCH (09:31)
[2024-01-22] MEDS: FILGRASTIM-AAFI 480 MCG/0.8 ML SYRINGE SQ SCH (10:11)
[2024-01-22] MEDS: DEXAMETHASONE SOD PHOS 10 MG/1 ML VIAL IV ONE ×2 (11:37→16:25)
[2024-01-22] MEDS: DIPHENHYDRAMINE HCL INJ 50 MG/ML VIAL IV ONE ×2 (11:37→16:25)
[2024-01-22] MEDS: ACETAMINOPHEN 325 MG TAB PO ONE ×2 (11:37→16:24)
[2024-01-22] MEDS: MAALOX/LIDOCAINE/BENADRYL/NYST 30 ML BTL PO PRN (15:35)
[2024-01-22] MEDS: DEXAMETHASONE SOD PHOS 10 MG/1 ML VIAL IV PRN (21:33)
[2024-01-22] MEDS: ACETAMINOPHEN 325 MG TAB PO PRN (21:35)
[2024-01-22] MEDS: ATORVASTATIN 10 MG TAB PO SCH (21:36)
[2024-01-22] MEDS: DIPHENHYDRAMINE HCL INJ 50 MG/ML VIAL IV PRN (21:38)
[2024-01-23] VITALS (8 sets, daily range): BP systolic 100–121; BP diastolic 58–72; PULSE 65–84; RESP 18–20; TEMP 97.4–98.3; O2SAT 94–98
[2024-01-23] MEDS: ZOLPIDEM TARTRATE 5 MG TAB PO PRN (00:04)
[2024-01-23 05:59] LABS: BASOPHILS % 0.6 % (0.0-1.0); HEMATOCRIT 25.4 % (34.2-44.1); HEMOGLOBIN 8.9 g/dL (12.0-16.0); LYMPHOCYTES # (AUTO) 0.3 (1.0-3.2); LYMPHOCYTES % 18.9 % (18.0-39.1); MEAN CORPUSCULAR HEMOGLOBIN 33.2 pg (28-32); MEAN CORPUSCULAR VOLUME 94.8 fL (81-99); MONOCYTES # (AUTO) 0.1 (0.2-0.8); MONOCYTES % 6.7 % (4.4-11.3); NEUTROPHILS # (AUTO) 1.3 (2.1-6.9); NEUTROPHILS % 72.1 % (38.7-80.0); PLATELET COUNT 23 x10e3/uL (140-360); RED BLOOD COUNT 2.68 x10e6/uL (3.6-5.1)
[2024-01-23 07:00] LABS: ALBUMIN 2.8 g/dL (3.5-5.0); BILIRUBIN,TOTAL 2.6 mg/dL (0.2-1.2); CALCIUM 8.5 mg/dL (8.4-10.2); CREATININE, SERUM 1.07 mg/dL (0.57-1.11); TOTAL PROTEIN 5.7 g/dL (6.5-8.1)
[2024-01-23 07:53] LABS: BAND NEUTROPHILS % (MANUAL) 8 %; LYMPHOCYTES % (MANUAL) 10 % (19-48); MONOCYTES % (MANUAL) 2 % (3.4-9.0); NEUTROPHILS % (MANUAL) 80 % (40-74)
[2024-01-23 07:54] LABS: ANISOCYTOSIS MODERATE; PLATELET ESTIMATE MARKEDLY DECREASED; PLATELET MORPHOLOGY COMMENT NORMAL; RBC MORPHOLOGY COMMENT ABNORMAL; TOXIC GRANULATION MODERATE
[2024-01-23] MEDS ORDERED: ONDANSETRON HCL 4 MG ORAL DISINTEGRATING TAB PO PRN (11:00)
[2024-01-24 06:44] LABS: BASOPHILS % 0.8 % (0.0-1.0); EOSINOPHILS % 0.4 % (0.0-6.0); HEMATOCRIT 23.8 % (34.2-44.1); HEMOGLOBIN 8.1 g/dL (12.0-16.0); LYMPHOCYTES # (AUTO) 0.2 (1.0-3.2); LYMPHOCYTES % 7.6 % (18.0-39.1); MEAN CORPUSCULAR HEMOGLOBIN 32.4 pg (28-32); MEAN CORPUSCULAR VOLUME 95.2 fL (81-99); MONOCYTES # (AUTO) 0.2 (0.2-0.8); NEUTROPHILS # (AUTO) 1.8 (2.1-6.9); NEUTROPHILS % 69.5 % (38.7-80.0); WHITE BLOOD COUNT 2.62 x10e3/uL (4.8-10.8)
[2024-01-24 06:48] LABS: PLATELET COUNT 25 x10e3/uL (140-360)
[2024-01-24 07:26] LABS: ALBUMIN 2.7 g/dL (3.5-5.0); ALBUMIN/GLOBULIN RATIO 1.1 (0.8-2.0); BILIRUBIN,TOTAL 1.4 mg/dL (0.2-1.2); CALCIUM 8.1 mg/dL (8.4-10.2); CREATININE, SERUM 0.8 mg/dL (0.57-1.11); TOTAL PROTEIN 5.1 g/dL (6.5-8.1)
[2024-01-24 08:00] VITALS: BP 115/71; PULSE 78; RESP 18; TEMP 97.5; O2SAT 96
[2024-01-24 08:08] VITALS: BP 115/71; PULSE 78; RESP 18; TEMP 97.5; O2SAT 95
[2024-01-24 11:43] VITALS: BP 127/70; PULSE 75; RESP 18; TEMP 97.7; O2SAT 98
[2024-01-24 15:43] LABS: BAND NEUTROPHILS % (MANUAL) 28 %; EOSINOPHILS % (MANUAL) 1 % (0-7); HYPOCHROMASIA MODERATE; LYMPHOCYTES % (MANUAL) 3 % (19-48); METAMYELOCYTES % (MANUAL) 3 % (0-0); MONOCYTES % (MANUAL) 11 % (3.4-9.0); NEUTROPHILS % (MANUAL) 54 % (40-74); PLATELET ESTIMATE MARKEDLY DECREASED; PLATELET MORPHOLOGY COMMENT NORMAL
[2024-01-24 16:09] VITALS: BP 131/67; PULSE 87; RESP 18; TEMP 97.3; O2SAT 96
[2024-01-24 20:00] VITALS: BP 129/73; PULSE 82; RESP 20; TEMP 98.6; O2SAT 96
[2024-01-24] MEDS: SODIUM CHLORIDE 0.9% 1000ML 1,000 ML ONE (20:06)
[2024-01-24 21:00] VITALS: BP_SYST 115; BP_SYST 128; BP_DIAS 71; BP_DIAS 73; PULSE 78; PULSE 82; RESP 18; RESP 20; TEMP 97.5; TEMP 98.6; O2SAT 96
[2024-01-24] MEDS: ZOLPIDEM TARTRATE 5 MG TAB ONE (23:09)
[2024-01-25] VITALS (8 sets, daily range): BP systolic 108–162; BP diastolic 70–78; PULSE 72–95; RESP 16–18; TEMP 98.3–99.6; O2SAT 93–98
[2024-01-25] MEDS: MAALOX/LIDOCAINE/BENADRYL/NYST 30 ML BTL PO STA (00:08)
[2024-01-25] MEDS: HYDROCORTISONE ACETATE 25 MG/SUPP.RECT SUPP RC ONE ×3 (01:24→20:14)
[2024-01-25] MEDS: LEVOTHYROXINE SODIUM 25 MCG TABLET ONE (05:52)
[2024-01-25] MEDS: SODIUM CHLORIDE 0.9% 1000ML 1,000 ML ONE (05:52)
[2024-01-25 07:29] LABS: BASOPHILS % 0.6 % (0.0-1.0); EOSINOPHILS # (AUTO) 0.1 (0.0-0.4); EOSINOPHILS % 1.5 % (0.0-6.0); HEMOGLOBIN 7.9 g/dL (12.0-16.0); LYMPHOCYTES # (AUTO) 0.2 (1.0-3.2); LYMPHOCYTES % 5.9 % (18.0-39.1); MEAN CORPUSCULAR HEMOGLOBIN 31.9 pg (28-32); MEAN CORPUSCULAR HGB CONC 34.3 g/dL (31-35); MEAN CORPUSCULAR VOLUME 92.7 fL (81-99); MONOCYTES # (AUTO) 0.2 (0.2-0.8); MONOCYTES % 5.6 % (4.4-11.3); NEUTROPHILS # (AUTO) 2.8 (2.1-6.9); NEUTROPHILS % 83.1 % (38.7-80.0); RED BLOOD COUNT 2.48 x10e6/uL (3.6-5.1); RED CELL DISTRIBUTION WIDTH 18.6 % (11.7-14.4); WHITE BLOOD COUNT 3.37 x10e3/uL (4.8-10.8)
[2024-01-25 07:44] LABS: PLATELET COUNT 19 x10e3/uL (140-360)
[2024-01-25] MEDS: MONTELUKAST SODIUM 10 MG TAB ONE (09:02)
[2024-01-25] MEDS: MAALOX/LIDOCAINE/BENADRYL/NYST 30 ML BTL PO SCH (09:06)
[2024-01-25] MEDS: FILGRASTIM-AAFI 480 MCG/0.8 ML SYRINGE SQ ONE (11:04)
[2024-01-25 11:05] LABS: BAND NEUTROPHILS % (MANUAL) 24 %; HYPOCHROMASIA MODERATE; LYMPHOCYTES % (MANUAL) 6 % (19-48); MONOCYTES % (MANUAL) 9 % (3.4-9.0); NEUTROPHILS % (MANUAL) 61 % (40-74); PLATELET ESTIMATE MARKEDLY DECREASED; PLATELET MORPHOLOGY COMMENT NORMAL
[2024-01-25] MEDS: DEXAMETHASONE SOD PHOS 10 MG/1 ML VIAL ONE ×2 (20:11→20:14)
[2024-01-25] MEDS: ACETAMINOPHEN 325 MG TAB ONE ×2 (20:14)
[2024-01-25] MEDS: DIPHENHYDRAMINE HCL INJ 50 MG/ML VIAL ONE ×2 (20:14)
[2024-01-25] MEDS: SODIUM CHLORIDE 0.9% 250ML 250 ML ONE (20:14)
[2024-01-26] VITALS (8 sets, daily range): BP systolic 133–144; BP diastolic 63–76; PULSE 86–96; RESP 16–20; TEMP 97.7–99.3; O2SAT 94–96
[2024-01-26 05:29] LABS: BASOPHILS % 0.9 % (0.0-1.0); EOSINOPHILS % 0.9 % (0.0-6.0); HEMATOCRIT 23.9 % (34.2-44.1); HEMOGLOBIN 8.3 g/dL (12.0-16.0); LYMPHOCYTES # (AUTO) 0.5 (1.0-3.2); LYMPHOCYTES % 10.3 % (18.0-39.1); MEAN CORPUSCULAR HEMOGLOBIN 32.5 pg (28-32); MEAN CORPUSCULAR HGB CONC 34.7 g/dL (31-35); MEAN CORPUSCULAR VOLUME 93.7 fL (81-99); MONOCYTES # (AUTO) 0.3 (0.2-0.8); MONOCYTES % 6.9 % (4.4-11.3); NEUTROPHILS # (AUTO) 3.5 (2.1-6.9); NEUTROPHILS % 79.4 % (38.7-80.0); RED BLOOD COUNT 2.55 x10e6/uL (3.6-5.1); RED CELL DISTRIBUTION WIDTH 18.2 % (11.7-14.4); WHITE BLOOD COUNT 4.37 x10e3/uL (4.8-10.8)
[2024-01-26 05:39] LABS: PLATELET COUNT 21 x10e3/uL (140-360)
[2024-01-26 06:38] LABS: ALBUMIN 2.7 g/dL (3.5-5.0); ALBUMIN/GLOBULIN RATIO 1.3 (0.8-2.0); ANION GAP 12.5 mmol/L (8-16); BILIRUBIN,TOTAL 1.1 mg/dL (0.2-1.2); CALCIUM 8.3 mg/dL (8.4-10.2); CREATININE, SERUM 0.75 mg/dL (0.57-1.11); POTASSIUM 3.5 mmol/L (3.5-5.1); TOTAL PROTEIN 4.8 g/dL (6.5-8.1)
[2024-01-26 08:09] LABS: ANISOCYTOSIS SLIGHT; BAND NEUTROPHILS % (MANUAL) 2 %; BASOPHILS % (MANUAL) 1 % (0-1.5); LYMPHOCYTES % (MANUAL) 8 % (19-48); MONOCYTES % (MANUAL) 12 % (3.4-9.0); NEUTROPHILS % (MANUAL) 74 % (40-74); PLATELET ESTIMATE MARKEDLY DECREASED; PLATELET MORPHOLOGY COMMENT NORMAL; RBC MORPHOLOGY COMMENT NORMAL; REACTIVE LYMPHOCYTES 3
[2024-01-26 08:10] LABS: TOXIC GRANULATION MODERATE
[2024-01-27 00:50] VITALS: BP 147/72; PULSE 92; RESP 20; TEMP 99; O2SAT 94
[2024-01-27 08:39] VITALS: BP 150/76; PULSE 95; RESP 18; TEMP 99.1; O2SAT 96
[2024-01-27 09:00] VITALS: BP 150/76; PULSE 95; RESP 18; TEMP 99.1; O2SAT 96
[2024-01-27] MEDS: HEPARIN 500 UNITS/5ML MDV INJ ONE (11:27)
== END 2024-01-27 12:04 | disposition home or self-care (01) | DRG 809 ==
LOC: ER 10:57 → ERHOLD 12:54 → MED/SURG3 14:41
PROVIDERS: ADMIT Internal Medicine; ATTEND Internal Medicine
PROC: 30233N1 Transfusion of Nonautologous Red Blood Cells into Peripheral Vein, Percutaneous Approach (ICD-10-PCS; principal; 2024-01-22)
DX: D61.810 Antineoplastic chemotherapy induced pancytopenia (principal); C85.90 Non-Hodgkin lymphoma, unspecified, unspecified site; K62.5 Hemorrhage of anus and rectum; N39.0 Urinary tract infection, site not specified; D70.2 Other drug-induced agranulocytosis; E78.5 Hyperlipidemia, unspecified; E03.9 Hypothyroidism, unspecified; B96.89 Other specified bacterial agents as the cause of diseases classified elsewhere; I10 Essential (primary) hypertension; J45.909 Unspecified asthma, uncomplicated; K21.9 Gastro-esophageal reflux disease without esophagitis; Z11.52 Encounter for screening for COVID-19; K64.8 Other hemorrhoids; Z79.890 Hormone replacement therapy; Z79.899 Other long term (current) drug therapy; Z88.5 Allergy status to narcotic agent
CPT/HCPCS: 36415; 71045; 80053; 81001; 82607; 82746; 83540; 83690; 84466; 85014; 85018; 85025; 85045; 85610; 85730; 86850; 86870; 86880; 86900; 86905; 86920; 86922; 87086; 87186; 99001; 99252; 99284; J0696; J1100; J1200; J7030; J7050; P9016; U0002

== ENCOUNTER 2024-04-02 12:36 | Observation (INO) | payer MEDICARE ==
[2024-04-02] VITALS (7 sets, daily range): BP systolic 101–112; BP diastolic 47–70; PULSE 82–98; RESP 18; TEMP 98–98.2; O2SAT 93–99
[~2024-04-02] VITALS: Ht 309.9 cm; Wt 72.6 kg
[~2024-04-02 12:36] MED LIST changes: +BREO ELLIPTA 21 EACH INH; +PANTOPRAZOLE SO40 MG PO; +TYLENOL PM EXS1 EACH; +ULTRAM 50MG50 MG PO; +VITAMIN C1000 MG PO
[2024-04-02 14:05] LABS: BASOPHILS % 0.6 % (0.0-1.0); EOSINOPHILS # (AUTO) 0.1 (0.0-0.4); EOSINOPHILS % 1.2 % (0.0-6.0); HEMOGLOBIN 6.8 g/dL (12.0-16.0); LYMPHOCYTES # (AUTO) 2.3 (1.0-3.2); LYMPHOCYTES % 43.5 % (18.0-39.1); MEAN CORPUSCULAR HEMOGLOBIN 30.9 pg (28-32); MEAN CORPUSCULAR HGB CONC 32.5 g/dL (31-35); MONOCYTES # (AUTO) 0.6 (0.2-0.8); MONOCYTES % 12.2 % (4.4-11.3); NEUTROPHILS # (AUTO) 2.1 (2.1-6.9); NEUTROPHILS % 41.1 % (38.7-80.0); RED CELL DISTRIBUTION WIDTH 19.8 % (11.7-14.4); WHITE BLOOD COUNT 5.17 x10e3/uL (4.8-10.8)
[2024-04-02 14:12] LABS: HEMATOCRIT 20.9 % (34.2-44.1); INR 0.95; PLATELET COUNT 11 x10e3/uL (140-360); PROTHROMBIN TIME 13.4 seconds (11.9-14.5)
[2024-04-02 14:13] LABS: PARTIAL THROMBOPLASTIN TIME 28.7 seconds (23.8-35.5)
[2024-04-02 14:25] LABS: ALANINE AMINOTRANSFERASE 13 IU/L (0-55); ALBUMIN 3.4 g/dL (3.5-5.0); ALBUMIN/GLOBULIN RATIO 1.1 (0.8-2.0); ALKALINE PHOSPHATASE 103 IU/L (40-150); ANION GAP 17.1 mmol/L (8-16); BILIRUBIN,TOTAL 1.5 mg/dL (0.2-1.2); BLOOD UREA NITROGEN 17 mg/dL (7-26); BUN/CREATININE RATIO 14 (6-25); CALCIUM 8.9 mg/dL (8.4-10.2); CARBON DIOXIDE 20 mmol/L (22-29); CHLORIDE 105 mmol/L (98-107); CREATININE, SERUM 1.21 mg/dL (0.57-1.11); EST GLOMERULAR FILTRATION RATE 46 ML/MIN (>=60); GLUCOSE 95 mg/dL (74-118); MAGNESIUM 1.8 MG/DL (1.3-2.1); POTASSIUM 4.1 mmol/L (3.5-5.1); SODIUM 138 mmol/L (136-145); TOTAL PROTEIN 6.4 g/dL (6.5-8.1)
[2024-04-02 14:36] LABS: TROPONIN I < 0.001 ng/mL (0-0.300)
[2024-04-02 15:58] LABS: BAND NEUTROPHILS % (MANUAL) 1 %
[2024-04-02 15:59] LABS: ANISOCYTOSIS SLIGHT; EOSINOPHILS % (MANUAL) 2 % (0-7); LYMPHOCYTES % (MANUAL) 36 % (19-48); MONOCYTES % (MANUAL) 12 % (3.4-9.0); NEUTROPHILS % (MANUAL) 49 % (40-74); RBC MORPHOLOGY COMMENT NORMAL
[2024-04-02 16:00] LABS: PLATELET ESTIMATE MARKEDLY DECREASED; PLATELET MORPHOLOGY COMMENT NORMAL
[2024-04-02] MEDS: SODIUM CHLORIDE 0.9% 1000ML 1,000 ML IV SCH (16:14)
[2024-04-02] MEDS: ONDANSETRON HCL INJ 2MG/ML 2ML 2 MG/ML VIAL IV PRN (16:15)
[2024-04-02] MEDS: SODIUM CHLORIDE 0.9% 250ML 250 ML IV ONE (22:25)
[2024-04-03] VITALS (24 sets, daily range): BP systolic 96–147; BP diastolic 51–97; PULSE 82–100; RESP 16–20; TEMP 98.1–99.6; O2SAT 93–99
[2024-04-03] MEDS: SODIUM CHLORIDE 0.9% 250ML 250 ML ONE ×3 (07:34→15:17)
[2024-04-03] MEDS ORDERED: TRAMADOL HCL 50 MG TAB PO PRN (10:15)
[2024-04-03] MEDS: ASCORBIC ACID 500 MG TAB PO SCH (11:49)
[2024-04-03] MEDS: MULTIVITAMINS/MINERALS TAB PO SCH (11:49)
[2024-04-03] MEDS: ACETAMINOPHEN 325 MG TAB PO PRN (14:54)
[2024-04-03] MEDS: PANTOPRAZOLE SOD 40 MG TABEC PO SCH (16:56)
[2024-04-03] MEDS: DIPHENHYDRAMINE HCL 25 MG CAP PO PRN (21:05)
[2024-04-03] MEDS: ATORVASTATIN 10 MG TAB PO SCH (21:06)
[2024-04-04] VITALS (19 sets, daily range): BP systolic 110–132; BP diastolic 61–77; PULSE 84–95; RESP 17–20; TEMP 98.3–102.1; O2SAT 95–100
[2024-04-04] MEDS: LEVOTHYROXINE SODIUM 75 MCG TAB PO SCH (05:03)
[2024-04-04] MEDS: FUROSEMIDE INJ 10 MG/ML 2 ML VIAL IV PRN (05:03)
[2024-04-04 07:07] LABS: BASOPHILS % 1.1 % (0.0-1.0); EOSINOPHILS % 0.8 % (0.0-6.0); HEMATOCRIT 27.7 % (34.2-44.1); HEMOGLOBIN 9.4 g/dL (12.0-16.0); LYMPHOCYTES # (AUTO) 1.7 (1.0-3.2); LYMPHOCYTES % 46.3 % (18.0-39.1); MEAN CORPUSCULAR HEMOGLOBIN 30.9 pg (28-32); MEAN CORPUSCULAR HGB CONC 33.9 g/dL (31-35); MEAN CORPUSCULAR VOLUME 91.1 fL (81-99); MONOCYTES # (AUTO) 0.5 (0.2-0.8); MONOCYTES % 13.6 % (4.4-11.3); NEUTROPHILS # (AUTO) 1.2 (2.1-6.9); NEUTROPHILS % 33.8 % (38.7-80.0); RED BLOOD COUNT 3.04 x10e6/uL (3.6-5.1); RED CELL DISTRIBUTION WIDTH 18.6 % (11.7-14.4); WHITE BLOOD COUNT 3.61 x10e3/uL (4.8-10.8)
[2024-04-04 07:11] LABS: ALBUMIN 3.4 g/dL (3.5-5.0); ALBUMIN/GLOBULIN RATIO 1.2 (0.8-2.0); ANION GAP 12.6 mmol/L (8-16); BILIRUBIN,TOTAL 2.6 mg/dL (0.2-1.2); CALCIUM 9.3 mg/dL (8.4-10.2); CREATININE, SERUM 0.81 mg/dL (0.57-1.11); POTASSIUM 3.6 mmol/L (3.5-5.1); TOTAL PROTEIN 6.3 g/dL (6.5-8.1)
[2024-04-04 07:15] LABS: PLATELET COUNT 6 x10e3/uL (140-360)
[2024-04-04 07:49] LABS: BASOPHILS % 0.6 % (0.0-1.0); EOSINOPHILS % 0.9 % (0.0-6.0); HEMATOCRIT 27.4 % (34.2-44.1); HEMOGLOBIN 9.5 g/dL (12.0-16.0); LYMPHOCYTES # (AUTO) 1.4 (1.0-3.2); LYMPHOCYTES % 44.2 % (18.0-39.1); MEAN CORPUSCULAR HEMOGLOBIN 32.4 pg (28-32); MEAN CORPUSCULAR HGB CONC 34.7 g/dL (31-35); MEAN CORPUSCULAR VOLUME 93.5 fL (81-99); MONOCYTES # (AUTO) 0.4 (0.2-0.8); MONOCYTES % 12.9 % (4.4-11.3); NEUTROPHILS # (AUTO) 1.3 (2.1-6.9); NEUTROPHILS % 38.6 % (38.7-80.0); RED BLOOD COUNT 2.93 x10e6/uL (3.6-5.1); RED CELL DISTRIBUTION WIDTH 19.3 % (11.7-14.4); WHITE BLOOD COUNT 3.26 x10e3/uL (4.8-10.8)
[2024-04-04 07:53] LABS: PLATELET COUNT 6 x10e3/uL (140-360)
[2024-04-04 07:54] LABS: CREATINE KINASE 30 IU/L (29-168)
[2024-04-04] MEDS: SODIUM CHLORIDE 0.9% 250ML 500 ML ONE ×2 (07:55→15:11)
[2024-04-04 08:24] LABS: TROPONIN I < 0.001 ng/mL (0-0.300)
[2024-04-04 11:26] LABS: BAND NEUTROPHILS % (MANUAL) 3 %; EOSINOPHILS % (MANUAL) 1 % (0-7); HYPOCHROMASIA SLIGHT; LYMPHOCYTES % (MANUAL) 42 % (19-48); MONOCYTES % (MANUAL) 9 % (3.4-9.0); NEUTROPHILS % (MANUAL) 45 % (40-74); PLATELET ESTIMATE MARKEDLY DECREASED; PLATELET MORPHOLOGY COMMENT NORMAL
[2024-04-05] VITALS (8 sets, daily range): BP systolic 109–124; BP diastolic 60–74; PULSE 84–96; RESP 12–19; TEMP 98.2–101; O2SAT 97–100
[2024-04-05 06:13] LABS: BASOPHILS % 0.3 % (0.0-1.0); EOSINOPHILS % 1.1 % (0.0-6.0); HEMATOCRIT 26.4 % (34.2-44.1); HEMOGLOBIN 8.8 g/dL (12.0-16.0); LYMPHOCYTES # (AUTO) 1.6 (1.0-3.2); LYMPHOCYTES % 44.4 % (18.0-39.1); MEAN CORPUSCULAR HGB CONC 33.3 g/dL (31-35); MONOCYTES # (AUTO) 0.5 (0.2-0.8); MONOCYTES % 13.9 % (4.4-11.3); NEUTROPHILS # (AUTO) 1.2 (2.1-6.9); NEUTROPHILS % 34.5 % (38.7-80.0); RED BLOOD COUNT 2.84 x10e6/uL (3.6-5.1); RED CELL DISTRIBUTION WIDTH 18.7 % (11.7-14.4)
[2024-04-05 06:22] LABS: PLATELET COUNT 16 x10e3/uL (140-360)
[2024-04-05 07:01] LABS: ANION GAP 14.8 mmol/L (8-16); CALCIUM 8.7 mg/dL (8.4-10.2); CREATININE, SERUM 0.77 mg/dL (0.57-1.11); POTASSIUM 3.8 mmol/L (3.5-5.1)
[2024-04-05 08:45] LABS: TROPONIN I < 0.001 ng/mL (0-0.300)
[2024-04-05 09:38] LABS: CREATINE KINASE 18 IU/L (29-168)
[2024-04-06] VITALS: BP 112/60; PULSE 86; RESP 20; TEMP 100.5; O2SAT 96
[2024-04-06 04:00] VITALS: BP 103/58; PULSE 79; RESP 20; TEMP 98.2; O2SAT 97
[2024-04-06 05:34] LABS: BASOPHILS % 0.5 % (0.0-1.0); EOSINOPHILS # (AUTO) 0.1 (0.0-0.4); EOSINOPHILS % 1.5 % (0.0-6.0); HEMATOCRIT 23.6 % (34.2-44.1); HEMOGLOBIN 7.7 g/dL (12.0-16.0); LYMPHOCYTES # (AUTO) 1.9 (1.0-3.2); LYMPHOCYTES % 45.8 % (18.0-39.1); MEAN CORPUSCULAR HEMOGLOBIN 29.4 pg (28-32); MEAN CORPUSCULAR HGB CONC 32.6 g/dL (31-35); MEAN CORPUSCULAR VOLUME 90.1 fL (81-99); MONOCYTES # (AUTO) 0.5 (0.2-0.8); NEUTROPHILS # (AUTO) 1.5 (2.1-6.9); NEUTROPHILS % 36.1 % (38.7-80.0); RED BLOOD COUNT 2.62 x10e6/uL (3.6-5.1); RED CELL DISTRIBUTION WIDTH 18.1 % (11.7-14.4); WHITE BLOOD COUNT 4.08 x10e3/uL (4.8-10.8)
[2024-04-06 05:47] LABS: PLATELET COUNT 9 x10e3/uL (140-360)
[2024-04-06 06:33] LABS: ALBUMIN/GLOBULIN RATIO 1.1 (0.8-2.0); ANION GAP 13.4 mmol/L (8-16); BILIRUBIN,TOTAL 1.3 mg/dL (0.2-1.2); CALCIUM 8.7 mg/dL (8.4-10.2); CREATININE, SERUM 0.84 mg/dL (0.57-1.11); MAGNESIUM 1.6 MG/DL (1.3-2.1); TOTAL PROTEIN 5.7 g/dL (6.5-8.1)
[2024-04-06 06:34] LABS: POTASSIUM 3.4 mmol/L (3.5-5.1)
[2024-04-06 07:25] VITALS: BP 113/69; PULSE 82; RESP 18; TEMP 98; O2SAT 97
[2024-04-06] MEDS ORDERED: SODIUM CHLORIDE 0.9% 250ML 250 ML IV ONE (07:30)
[2024-04-06 08:35] VITALS: BP 113/69; PULSE 82; RESP 18; TEMP 98; O2SAT 97
[2024-04-06] MEDS ORDERED: SODIUM CHLORIDE 0.9% 250ML 250 ML ONE (11:51)
[2024-04-06 15:17] VITALS: BP 118/63; PULSE 93; RESP 18; TEMP 101.2; O2SAT 94
[2024-04-06 17:57] LABS: BASOPHILS % 0.3 % (0.0-1.0); EOSINOPHILS % 0.8 % (0.0-6.0); HEMATOCRIT 26.8 % (34.2-44.1); HEMOGLOBIN 9.1 g/dL (12.0-16.0); LYMPHOCYTES # (AUTO) 1.3 (1.0-3.2); LYMPHOCYTES % 34.1 % (18.0-39.1); MEAN CORPUSCULAR HEMOGLOBIN 30.3 pg (28-32); MEAN CORPUSCULAR VOLUME 89.3 fL (81-99); MONOCYTES # (AUTO) 0.3 (0.2-0.8); MONOCYTES % 7.1 % (4.4-11.3); NEUTROPHILS % 51.3 % (38.7-80.0); RED CELL DISTRIBUTION WIDTH 17.2 % (11.7-14.4); WHITE BLOOD COUNT 3.93 x10e3/uL (4.8-10.8)
[2024-04-06 17:59] LABS: PLATELET COUNT 34 x10e3/uL (140-360)
[2024-04-06 18:24] VITALS: PULSE 89; RESP 18; O2SAT 96
== END 2024-04-06 18:33 | disposition home or self-care (01) ==
LOC: ER 13:14 → ERHOLD 14:28 → MED/SURG3 17:13
PROVIDERS: ADMIT Internal Medicine; ATTEND Internal Medicine
DX: D61.818 Other pancytopenia (principal); C85.90 Non-Hodgkin lymphoma, unspecified, unspecified site; R53.1 Weakness; R50.9 Fever, unspecified; D63.0 Anemia in neoplastic disease; D63.8 Anemia in other chronic diseases classified elsewhere; I10 Essential (primary) hypertension; E78.5 Hyperlipidemia, unspecified; K21.9 Gastro-esophageal reflux disease without esophagitis; E03.9 Hypothyroidism, unspecified; Z11.52 Encounter for screening for COVID-19; Z79.899 Other long term (current) drug therapy
CPT/HCPCS: 36415 ×4; 36430 ×2; 71045; 80048; 80053 ×3; 82550 ×2; 83735 ×2; 84484 ×3; 85025 ×4; 85610; 85730; 86850 ×2; 86870; 86880; 86900 ×2; 86905; 86920 ×2; 86922 ×2; 86945 ×2; 93005; 94799 ×3; 99001; 99284; G0378 ×5; J1940; J2405; J7030; J7050 ×3; P9016 ×3; P9034 ×3; S0164 ×4; U0002

== ENCOUNTER 2024-10-13 11:50 | Observation (INO) | payer MEDICARE ==
[~2024-10-13] VITALS: Ht 154.9 cm; Wt 77.1 kg
[2024-10-13 12:10] VITALS: PULSE 92; RESP 18; TEMP 99
[2024-10-13 13:32] LABS: BASOPHILS % 0.2 % (0.0-1.0); EOSINOPHILS # (AUTO) 0.1 (0.0-0.4); EOSINOPHILS % 2.1 % (0.0-6.0); LYMPHOCYTES # (AUTO) 0.8 (1.0-3.2); LYMPHOCYTES % 18.1 % (18.0-39.1); MEAN CORPUSCULAR HEMOGLOBIN 33.3 pg (28-32); MEAN CORPUSCULAR HGB CONC 30.3 g/dL (31-35); MEAN CORPUSCULAR VOLUME 110.1 fL (81-99); MONOCYTES # (AUTO) 0.5 (0.2-0.8); MONOCYTES % 10.3 % (4.4-11.3); NEUTROPHILS # (AUTO) 2.7 (2.1-6.9); NEUTROPHILS % 62.4 % (38.7-80.0); PLATELET COUNT 85 x10e3/uL (140-360); RED BLOOD COUNT 1.29 x10e6/uL (3.6-5.1); RED CELL DISTRIBUTION WIDTH 21.1 % (11.7-14.4); WHITE BLOOD COUNT 4.36 x10e3/uL (4.8-10.8)
[2024-10-13 13:40] LABS: HEMATOCRIT 14.2 % (34.2-44.1); HEMOGLOBIN 4.3 g/dL (12.0-16.0)
[2024-10-13 13:48] LABS: INR 0.97; PROTHROMBIN TIME 13.5 seconds (11.9-14.5)
[2024-10-13 13:49] LABS: PARTIAL THROMBOPLASTIN TIME 31.2 seconds (23.8-35.5)
[2024-10-13 13:54] LABS: ALBUMIN 3.7 g/dL (3.5-5.0); ALBUMIN/GLOBULIN RATIO 1.4 (0.8-2.0); ANION GAP 14.5 mmol/L (8-16); BILIRUBIN,TOTAL 0.9 mg/dL (0.2-1.2); CALCIUM 9.2 mg/dL (8.4-10.2); CREATININE, SERUM 1.39 mg/dL (0.57-1.11); MAGNESIUM 1.9 MG/DL (1.3-2.1); POTASSIUM 4.5 mmol/L (3.5-5.1); TOTAL PROTEIN 6.4 g/dL (6.5-8.1)
[2024-10-13 14:00] LABS: TROPONIN I 0.006 ng/mL (0-0.300)
[2024-10-13] MEDS ORDERED: ONDANSETRON HCL INJ 2MG/ML 2ML 2 MG/ML VIAL IV PRN (14:00)
[2024-10-13] MEDS ORDERED: SODIUM CHLORIDE 0.9% 250ML 250 ML ONE (16:23)
[2024-10-13 20:23] VITALS: BP 157/71; PULSE 100; RESP 18; TEMP 99.6; O2SAT 96
[2024-10-13 22:20] VITALS: BP 131/66; PULSE 100; RESP 18; TEMP 98.9; O2SAT 100
[2024-10-13 22:41] VITALS: BP 133/66; PULSE 100; RESP 18; TEMP 98.9; O2SAT 100
[2024-10-13 23:09] VITALS: BP 126/55; PULSE 98; RESP 18; TEMP 99.1; O2SAT 97
[2024-10-14 03:03] VITALS: BP 125/68; PULSE 79; RESP 18; TEMP 98.3; O2SAT 98
[2024-10-14] MEDS ORDERED: TRAMADOL HCL 50 MG TAB PO PRN (04:45)
[2024-10-14] MEDS: SODIUM CHLORIDE 0.9% 1000ML 1,000 ML IV SCH (05:06)
[2024-10-14] MEDS: LEVOTHYROXINE SODIUM 75 MCG TAB PO SCH (05:16)
[2024-10-14 06:35] LABS: ALBUMIN 3.6 g/dL (3.5-5.0); ALBUMIN/GLOBULIN RATIO 1.5 (0.8-2.0); ANION GAP 14.9 mmol/L (8-16); BILIRUBIN,TOTAL 4.8 mg/dL (0.2-1.2); CALCIUM 8.9 mg/dL (8.4-10.2); CREATININE, SERUM 1.19 mg/dL (0.57-1.11); POTASSIUM 3.9 mmol/L (3.5-5.1)
[2024-10-14 06:43] LABS: TROPONIN I 0.01 ng/mL (0-0.300)
[2024-10-14 07:58] LABS: BASOPHILS % 0.6 % (0.0-1.0); EOSINOPHILS # (AUTO) 0.1 (0.0-0.4); EOSINOPHILS % 2.2 % (0.0-6.0); HEMATOCRIT 26.5 % (34.2-44.1); HEMOGLOBIN 8.3 g/dL (12.0-16.0); LYMPHOCYTES # (AUTO) 0.2 (1.0-3.2); LYMPHOCYTES % 6.6 % (18.0-39.1); MEAN CORPUSCULAR HGB CONC 31.3 g/dL (31-35); MEAN CORPUSCULAR VOLUME 102.3 fL (81-99); MONOCYTES # (AUTO) 0.2 (0.2-0.8); MONOCYTES % 5.7 % (4.4-11.3); NEUTROPHILS # (AUTO) 2.6 (2.1-6.9); NEUTROPHILS % 80.5 % (38.7-80.0); PLATELET COUNT 62 x10e3/uL (140-360); RED BLOOD COUNT 2.59 x10e6/uL (3.6-5.1); RED CELL DISTRIBUTION WIDTH 20.3 % (11.7-14.4); WHITE BLOOD COUNT 3.17 x10e3/uL (4.8-10.8)
[2024-10-14 08:02] VITALS: BP 128/61; PULSE 85; RESP 18; TEMP 99.3; O2SAT 97
[2024-10-14] MEDS: ASCORBIC ACID 500 MG TAB PO SCH (09:16)
[2024-10-14] MEDS: OLMESARTAN 20 MG TAB PO SCH (09:16)
[2024-10-14] MEDS: PANTOPRAZOLE SOD 40 MG TABEC PO SCH (09:16)
[2024-10-14] MEDS ORDERED: SODIUM CHLORIDE 0.9% 250ML 250 ML IV ONE (10:00)
[2024-10-14 10:37] LABS: PLATELET ESTIMATE MODERATELY DECREASED
[2024-10-14 10:38] LABS: ANISOCYTOSIS MODERATE; PLATELET MORPHOLOGY COMMENT NORMAL; POLYCHROMASIA FEW
[2024-10-14] MEDS ORDERED: SODIUM CHLORIDE 0.9% 250ML 250 ML ONE (12:38)
[2024-10-14 13:58] VITALS: BP 141/77; PULSE 80; RESP 18; TEMP 98.1; O2SAT 99
[2024-10-14] MEDS: HEPARIN 500 UNITS/5ML MDV INJ ONE (16:46)
[2024-10-14 16:47] LABS: TROPONIN I 0.006 ng/mL (0-0.300)
[2024-10-14] MEDS ORDERED: ATORVASTATIN 10 MG TAB PO SCH (21:00)
== END 2024-10-14 16:50 | disposition home or self-care (01) ==
LOC: ER 12:08 → INTOOBSV 13:54 → ERHOLD 13:54 → MED/SURG2 20:33
PROVIDERS: ADMIT Internal Medicine; ATTEND Internal Medicine
DX: D46.9 Myelodysplastic syndrome, unspecified (principal); C85.90 Non-Hodgkin lymphoma, unspecified, unspecified site; D61.818 Other pancytopenia; I12.9 Hypertensive chronic kidney disease with stage 1 through stage 4 chronic kidney disease, or unspecified chronic kidney disease; N18.32 Chronic kidney disease, stage 3b; E78.5 Hyperlipidemia, unspecified; E03.9 Hypothyroidism, unspecified; K21.9 Gastro-esophageal reflux disease without esophagitis; E66.9 Obesity, unspecified; Z68.32 Body mass index [BMI] 32.0-32.9, adult; R94.31 Abnormal electrocardiogram [ECG] [EKG]; Z79.899 Other long term (current) drug therapy
CPT/HCPCS: 36415 ×2; 36430; 80053 ×2; 82550; 83735; 84484 ×2; 85025 ×2; 85610; 85730; 86850; 86900; 86920; 86922; 93005; 99284; G0378 ×2; J2470; J7030; J7050 ×2; P9016 ×2; S0164